=== PATIENT | male | born 1965 | race Caucasian/White ===

== ENCOUNTER 2018-04-10 14:20 | Emergency (ER) | payer MEDICARE, MEDICAID ==
--- NOTE | 2018-04-10 14:34 | Emergency Department Record ---
History of Present Illness - General Chief Complaint: Back Pain/Injury Stated Complaint: BACK PAIN UNDER SHOULDER BLADES Time Seen by Provider: 04/10/18 14:34 Source: Patient Mode of Arrival: Ambulatory Limitations: No limitations - History of Present Illness Initial Comments: 53 yo male presents with two weeks of scapular pain. The patient is a 3 year dialysis patient that had dialysis today. The pain hurt to move, reach, or change positions. No cough or chest pain. He was seen in the [facility] ED and had XR 's. No abdominal pain. No fevers. No nausea or vomiting. He had a chest CT last month at [facility]. He was told he had pleural effusions. He states he has had those for at least 3 years since his kidney failure occurred. He has a chronic unchanged rash of scabs for a few years as well since starting dialysis. He is on a transplant list through [facility] and states he has regular follow up. 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 He states he came to [facility] for the first time because "they won't treat" him at the [facility] ED although he states he did have XR in the last week for the pain in the ED at [facility]. He was told they were normal. Complaint: Back pain, Other -: Week(s) (2) Place: Home Radiation: None Severity: Moderate Quality: Aching Consistency: Constant Improves With: None Worsens With: Movement Associated Symptoms: Denies other symptoms - Related Data Home Medications Medication Instructions Recorded Confirmed Last Taken Amlodipine Besylate [Norvasc] 5 mg PO DAILY 04/10/18 04/10/18 04/10/18 Aspirin [Adult Aspirin] 81 mg PO DAILY 04/10/18 04/10/18 04/10/18 Previous Rx's Medication Instructions Recorded Amoxicillin 500Mg Capsule [Amoxil] 500 mg PO TID #30 tab 04/10/18 Hydrocodone/Acetaminophen [[place] 1 each PO Q6H #10 tablet 04/10/18 5-325 Tablet] Allergies Allergy/AdvReac Type Severity Reaction Status Date / Time No Known Drug Allergies Allergy Verified 04/10/18 14:34 Review of Systems Constitutional: Denies: Chills, Fever, Malaise, Weakness Eyes: Denies: Eye discharge ENT: Denies: Congestion, Throat pain Respiratory: Reports: Other (Does not hurt to breath). Denies: Cough, Dyspnea, Stridor, Wheezes Cardiovascular: Denies: Chest pain, Palpitations, Syncope Endocrine: Denies: Fatigue, Polydipsia, Polyuria Gastrointestinal: Denies: Abdominal pain, Diarrhea, Nausea, Vomiting Genitourinary: Denies: Dysuria, Frequency, Hematuria, Urgency Musculoskeletal: Reports: Back pain, Myalgia. Denies: Arthralgia, Joint swelling Skin: Denies: Bruising, Change in color, Rash Neurological: Denies: Headache, Numbness, Weakness Psychiatric: Denies: Anxiety Hematological/Lymphatic: Denies: Blood Clots, Easy bleeding, Easy bruising Physical Exam - General General Appearance: Alert, Oriented x3, Cooperative, No acute distress Limitations: No limitations - Head Head exam: Normal inspection - Eye Eye exam: Normal appearance, PERRL. negative: Conjunctival injection, Scleral icterus - ENT ENT exam: Normal exam Ear exam: Normal external inspection Nasal Exam: Normal inspection Mouth exam: Normal external inspection - Neck Neck exam: Normal inspection, Full ROM. negative: Tenderness - Respiratory Respiratory exam: Normal lung sounds bilaterally. negative: Respiratory distress, Rhonchi, Stridor, Wheezes - Cardiovascular Cardiovascular Exam: Regular rate, Normal rhythm, Normal heart sounds - GI/Abdominal GI/Abdominal exam: Soft. negative: Tenderness - Rectal Rectal exam: Deferred - exam: Deferred - Extremities Extremities exam: Normal inspection, Full ROM, Normal capillary refill. negative: Tenderness - Back Back exam: Reports: Tenderness. Denies: CVA tenderness (R), CVA tenderness (L) Image of Body Front/Back: 1 - tenderness to the scapular - Neurological Neurological exam: Alert, Oriented X3 - Psychiatric Psychiatric exam: Normal affect, Normal mood - Skin Skin exam: Dry, Intact, Warm, Other (numerous scabs all over the body). negative: Normal color Course - Reevaluation(s) Reevaluation #1: EKG #1: 1521 Rate: 81 Rhythm: Sinus [place]: Normal Intervals: Qtc 513 ST segments: CW LVH Prior: None 04/10/18 15:34 04/10/18 15:42 The labs were reviewed They are consistent with chronic kidney disease K is normal Hgb is 10 04/10/18 17:[address] was read as right sided small effusion (the patient states this has been present for three years). Atelectasis vs small infiltrate on the right. His pain is most consistent with musculoskeletal in nature but he will be treated with antibiotic given the CT findings. He was encouraged to call his doctor to recheck the pain that has been constant for 2 weeks. He may need an MRI if not improving. Medical Decision Making - Lab Data Result diagrams: 04/10/18 14:50 04/10/18 14:50 Disposition Disposition: Discharge Clinical Impression: Pain in scapula Disposition: Home, Self-Care Condition: (1) Good Instructions: Thoracic Pain (ED) Additional Instructions: Call your doctor for close follow up first of the week for your pain Do not miss dialysis Be seen if you have worse pain, fever, cough, short of breath Prescriptions: Amoxicillin 500Mg Capsule [Amoxil] 500 mg PO TID #30 tab Hydrocodone/Acetaminophen [Donie 5-325 Tablet] 1 each PO Q6H #10 tablet Forms: Patient Portal Access Quality - Quality Measures Quality Measures: N/A - Blood Pressure Screening Does Patient Have Any of the Following: Active Dx of HTN Blood Pressure Classification: Hypertensive Reading Systolic Measurement: 201 Diastolic Measurement: 101 Screening for High Blood Pressure: Patient Exclusion, Hx of HTN [G9744]
[2018-04-10 15:20] LABS: BASO % 0.5 % (0-6); EOS % 2.9 % (0-6); GRAN % 75.6 % (47-80); HEMOGLOBIN 10.1 gm/dl (14.0-18.0); LYMPH % 9.3 % (16-45); MEAN CELL VOLUME 94.4 fl (81-97); MEAN CORPUSCULAR HGB CONC 31.6 g/dl (32-36); MEAN PLATELET VOLUME 10.1 fl (7.4-10.4); MONO % 11.7 % (0-9); PLATELET COUNT 187 K/uL (130-400); RED BLOOD COUNT 3.39 M/uL (4.40-5.70); RED CELL DISTRIBUTION WIDTH 20.2 % (11.5-14.5); WHITE BLOOD COUNT W/O DIFF 6.2 K/uL (4.2-12.2)
[2018-04-10 15:21] LABS: MEAN CORPUSCULAR HEMOGLOBIN 29.7 pg (27-33)
[2018-04-10 15:25] LABS: CREATININE 4.6 mg/dL (0.7-1.2)
[2018-04-10 15:28] LABS: INR 1.1
[2018-04-10] MEDS ORDERED: MORPHINE SULFATE 10 MG/ML VIAL IVP ONE (15:52)
--- NOTE | 2018-04-12 19:47 | CT SCAN REPORT ---
EXAM: CT SCAN CHEST WO CONTRAST HISTORY: SCAPULAR BACK PAIN IN UPPER BACK. TECHNIQUE: Axial CT scan of the chest performed without IV contrast. COMPARISON: None. FINDINGS: Tiny bullae are seen throughout the lungs suggesting centrilobular emphysema. In addition, there is focal atelectasis or infiltrate inferiorly in the right middle lobe and in the right lower lobe along with a moderate-sized right pleural effusion. This could represent some basilar pneumonitis on the right. There is a somewhat ill-defined ground-glass opacity in the left upper lobe approximately 1 cm in size. This is probably just a patch of infiltrate as well rather than a true ill-defined pulmonary nodule. Very minor streaky atelectasis in the lingula posteriorly. The left lung appears otherwise clear. Extensive coronary artery calcification is present. Borderline aneurysmal dilatation of the ascending aorta measuring about 3.8 cm in diameter. Mild cardiomegaly. No pericardial effusion evident and no left pleural effusion seen. There is mild mediastinal adenopathy with a precarinal node measuring about 1.4 cm in maximum short axis and a subcarinal node measuring about 1.5 cm in maximum short axis. Other mildly enlarged mediastinal nodes are present as well. Highly difficult to evaluate without IV contrast. This mild mediastinal adenopathy is nonspecific although may be reactive, given the infiltrate in the right base. Follow-up chest CT after suitable therapy is suggested to be certain all these findings described above clear. There is some mild ascites evident in the upper abdomen adjacent to the liver and spleen. Some degenerative change in the body of T1, probably with some mild compression of the superior endplate. Comparison with old lateral spine or chest x-ray is suspected for further assessment. IMPRESSION: 1. CARDIOMEGALY WITH CORONARY ARTERY CALCIFICATION. 2. INFILTRATE IN THE RIGHT MIDDLE LOBE AND RIGHT LOWER LOBE WITH A RIGHT PLEURAL EFFUSION. FINDINGS MAY REPRESENT A COMBINATION OF PNEUMONITIS AND ATELECTASIS. 3. SOME MILD MEDIASTINAL ADENOPATHY IS NONSPECIFIC ALTHOUGH MAY JUST BE REACTIVE. 4. APPROXIMATELY 1 CM GROUND-GLASS OPACITY LEFT UPPER LOBE MAY BE A PATCH OF INFILTRATE WELL. 5. FOLLOW-UP CHEST CT FOLLOWING THERAPY SUGGESTED TO BE CERTAIN THESE FINDINGS CLEAR/RESOLVE. 6. MILD COMPRESSION OF THE SUPERIOR ENDPLATE OF THE BODY OF L1 IS PRESUMABLY CHRONIC. RECOMMEND COMPARISON WITH OLD FILMS. JOB NUMBER: [id number] [facility]
== END 2018-04-10 17:49 | disposition home or self-care (01) ==
LOC: ER 14:20
DX: M25.511 Pain in right shoulder (principal); M54.6 Pain in thoracic spine; R21 Rash and other nonspecific skin eruption; I12.0 Hypertensive chronic kidney disease with stage 5 chronic kidney disease or end stage renal disease; N18.6 End stage renal disease; Z99.2 Dependence on renal dialysis
CPT/HCPCS: 99284 ×2; 96374; 85025; 85730; 85610; 80048; 71250; 93005; 93010; J2270

== ENCOUNTER 2018-06-29 07:11 | Emergency (ER) | payer MEDICARE, MEDICAID ==
[2018-06-29] MEDS ORDERED: ACETAMINOPHEN 325 MG TAB PO ONE (07:25)
--- NOTE | 2018-06-29 07:33 | Emergency Department Record ---
History of Present Illness - General Chief complaint: Pain Stated complaint: SHOULDER PAIN Time Seen by Provider: 06/29/18 07:17 Source: Patient Mode of Arrival: Ambulatory Limitations: No limitations - History of Present Illness Initial comments: The patient is here due to L scapular area pain off and on for at least 3 months. The pain is sharp and stabbing and is worse with any bending, twisting or reaching. He states the pain lasts hours to days at a time. There has been no CP, SOB, YAZMIN, or sweating with the pain. The patient has had multiple evaluations at [facility] and here at [facility] but no diagnosis was given. The patient is also a renal dialysis patient and was at dialysis today when this started. He stopped his run short and drove here from [place] due to the pain. The patient states the pain last time he was here the pain was worse. He denies any arm or leg numbness, weakness or any bowel or bladder issues. MD Complaint: Other Onset/Timin -: Month(s) Location: Left History of Same: Yes Consistency: Intermittent Improves with: Nothing Worsens with: Nothing - Related Data Home Medications Medication Instructions Recorded Confirmed Last Taken Atorvastatin Calcium [Lipitor] 20 mg PO DAILY 06/29/18 06/29/18 Unknown Previous Rx's Medication Instructions Recorded Hydrocodone/Acetaminophen [[place] 1 each PO QID #12 tablet 06/29/18 5-325 Tablet] Allergies Allergy/AdvReac Type Severity Reaction Status Date / Time No Known Drug Allergies Allergy Verified 04/10/18 14:34 Travel Screening - Travel/Exposure Within Last 30 Days Have you traveled within the last 30 days?: No - Travel/Exposure Within Last Year Have you traveled outside the [place] in the last year?: No - Additonal Travel Details Have you been exposed to anyone with a communicable illness?: No - Travel Symptoms Symptom Screening: None Review of Systems Constitutional: Denies: Chills, Fever Eyes: Denies: Eye discharge ENT: Denies: Congestion Respiratory: Denies: Cough, Dyspnea Cardiovascular: Denies: Arrhythmia Endocrine: Denies: Fatigue Gastrointestinal: Denies: Diarrhea, Vomiting Genitourinary: Denies: Dysuria Musculoskeletal: Denies: Arthralgia Past Medical History - SOCIAL HISTORY Smoking Status: Never smoker Alcohol Use: None Drug Use: None - RESPIRATORY Hx Respiratory Disorders: No - CARDIOVASCULAR Hx Cardio Disorders: Yes Hx Hypertension: Yes - NEURO Hx Neuro Disorders: No - GI Hx GI Disorders: No - Hx Genitourinary Disorders: Yes Hx Renal Disease: Yes - ENDOCRINE Hx Endocrine Disorders: No - MUSCULOSKELETAL Hx Musculoskeletal Disorders: No - PSYCH Hx Psych Problems: No - HEMATOLOGY/ONCOLOGY Hx Hematology/Oncology Disorders: No Family Medical History Any Significant Family History?: No Physical Exam - General General Appearance: Alert, Oriented x3, Cooperative, No acute distress - Head Head exam: Atraumatic, Normocephalic, Normal inspection - Eye Eye exam: Normal appearance, PERRL - Neck Neck exam: Normal inspection, Full ROM. negative: Tenderness - Respiratory Respiratory exam: Normal lung sounds bilaterally. negative: Respiratory distress - Cardiovascular Cardiovascular Exam: Regular rate, Normal rhythm, Normal heart sounds - GI/Abdominal GI/Abdominal exam: Soft, Normal bowel sounds. negative: Tenderness - Extremities Extremities exam: Normal inspection, Full ROM, Normal capillary refill. negative: Tenderness - Back Back exam: Reports: Normal inspection, Paraspinal tenderness (The pain is very reproducible to palpation over the L scapular area just lateral to the thoracic spine. ). Denies: Vertebral tenderness Image of Body Front/Back: 1 - Area of pain and tenderness. Course Vital Signs 06/29/18 07:12 Temperature 97.6 F Pulse Rate 88 Respiratory 16 Rate Blood Pressure 185/114 Pulse Ox 94 L - Reevaluation(s) Reevaluation #1: The patient is still in pain but I did explain to his that due to the fact he is driving I cannot give him any narcotic pain medicines. The pain is still 100 % reproducible to palpation. His workup including EKG, labs and CXR do not demonstrate any cause for the pain and I do believe it is musculoskeletal in origin due to the chronic nature of the pain and the fact it is 100% reproducible. We will discuss the case with his [employer] Flu[employer] Specialist and have him F/U today. 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 Garza and he agrees with the plan for discharge on [place]. Dr. Garza will arrange for Hemodialysis later today and the patient is aware of the plan. 06/29/18 08:36 Reevaluation #3: The patient's BP is still elevated but he states that is normal for him when he is in pain. Looking at his old records does demonstrate similar BP's in the past. 06/29/18 08:44 Medical Decision Making - Data Complexity MDM Data: Labs Ordered and/or Reviewed, X-Ray Ordered and/or Reviewed, EKG Ordered and/or Reviewed - Lab Data Result diagrams: 06/29/18 07:39 06/29/18 07:39 - EKG Data -: EKG Interpreted by Me EKG: No Acute Changes, Unchanged From Previous - Radiology Data Radiology results: Report reviewed (CXR: Chronic R pleural effusion, O/W neg.) Disposition Disposition: Discharge Clinical Impression: Pain in scapula Disposition: Home, Self-Care Condition: (2) Stable Instructions: Muscle Spasm (ED) Additional Instructions: Please take the [place] for pain and please follow up at the dialysis unit today per Dr. Garza. Please see your Specialist or family doctor if not better in 3 days. Prescriptions: Hydrocodone/Acetaminophen [[place] 5-325 Tablet] 1 each PO QID #12 tablet Forms: Patient Portal Access Time of Disposition: 08:38 Quality - Quality Measures Quality Measures: N/A - Blood Pressure Screening View Details: Yes Does Patient Have Any of the Following: Active Dx of HTN Blood Pressure Classification: Hypertensive Reading Systolic Measurement: 185 Diastolic Measurement: 114 Screening for High Blood Pressure: Patient Exclusion, Hx of HTN [G9744]
[2018-06-29 07:47] LABS: HEMATOCRIT 33.3 % (42.0-52.0); HEMOGLOBIN 10.2 gm/dl (14.0-18.0); MEAN CELL VOLUME 94.9 fl (81-97); MEAN CORPUSCULAR HGB CONC 30.6 g/dl (32-36); MEAN PLATELET VOLUME 9.8 fl (7.4-10.4); PLATELET COUNT 180 K/uL (130-400); RED BLOOD COUNT 3.51 M/uL (4.40-5.70); RED CELL DISTRIBUTION WIDTH 17.6 % (11.5-14.5); WHITE BLOOD COUNT W/O DIFF 6.4 K/uL (4.2-12.2)
[2018-06-29 07:57] LABS: PLATELET ESTIMATE NORMAL (NORMAL)
[2018-06-29 07:59] LABS: CREATININE 8.3 mg/dL (0.7-1.2)
[2018-06-29 08:07] LABS: CKMB 3.9 ng/mL (<6.73)
--- NOTE | 2018-06-30 12:36 | RADIOLOGY REPORT ---
EXAM: CHEST, TWO VIEWS HISTORY: PERSISTENT POSTERIOR CHEST PAIN AT THE LEFT SCAPULA FOR THE PAST TWO MONTHS. NO KNOWN INJURY. END STAGE RENAL DISEASE. ON DIALYSIS. TECHNIQUE: PA and lateral upright views of the chest were obtained. Comparison: Previous chest CT dated 04/10/18. FINDINGS: The heart is borderline enlarged, but stable. The mediastinum and pulmonary vasculature are normal. There is a small right pleural effusion which appears similar to the previous chest CT. There is associated right basilar atelectasis which also appears similar. There are no visible acute pulmonary infiltrates. There is no pneumothorax. The bones appear intact. The etiology of the patient's left scapular pain is not apparent on this examination. IMPRESSION: 1. PERSISTENT SMALL RIGHT PLEURAL EFFUSION WITH ASSOCIATED RIGHT BASILAR ATELECTASIS. THESE FINDINGS ARE NOT SIGNIFICANTLY DIFFERENT FROM THE PREVIOUS CHEST CT. 2. NO ACUTE INTRATHORACIC PATHOLOGY IDENTIFIED. JOB NUMBER: [id number] [facility]TD[facility]
== END 2018-06-29 08:59 | disposition home or self-care (01) ==
LOC: ER 07:11
DX: M25.512 Pain in left shoulder (principal); I12.0 Hypertensive chronic kidney disease with stage 5 chronic kidney disease or end stage renal disease; N18.6 End stage renal disease; Z99.2 Dependence on renal dialysis
CPT/HCPCS: 71046; 80048; 82550; 82553; 85027; 93005; 93010; 99284